=== PATIENT | female | born 1955 | race Caucasian/White ===

== ENCOUNTER 2016-09-26 05:56 | Inpatient (IN) | payer MEDICARE, MEDICAID ==
[2016-09-26] MEDS ORDERED: MORPHINE SULFATE 15 MG TABLET.SA PO PRN (06:00)
[2016-09-26] MEDS ORDERED: TRANEXAMIC ACID 1,000 MG in NORMAL SALINE 100 ML IV PRN (06:00)
[2016-09-26] MEDS ORDERED: RINGERS SOLUTION,LACTATED 1,000 ML IV PRN (06:00)
[2016-09-26] MEDS ORDERED: ceFAZolin SODIUM 1 GM VIAL IV PRN (06:00)
[2016-09-26] MEDS ORDERED: ROPIVACAINE HCL/PF 100 MG, KETOROLAC TROMETHAMINE 30 MG, EPINEPHrine 0.2 MG in NORMAL S... IJ PRN (06:00)
[2016-09-26] MEDS ORDERED: RINGERS SOLUTION,LACTATED 1,000 ML IV ONE ×2 (07:50→08:35)
[2016-09-26] MEDS ORDERED: ACETAMINOPHEN 500 MG TABLET PO PRN (10:38)
[2016-09-26] MEDS ORDERED: ZOLPIDEM TARTRATE 5 MG TABLET PO PRN (10:38)
[2016-09-26] MEDS ORDERED: diphenhydrAMINE HCL 50 MG/ML VIAL IV PRN (10:38)
[2016-09-26] MEDS ORDERED: MAG HYDROX/ALUMINUM HYD/SIMETH 30 ML UDC PO PRN (10:38)
[2016-09-26] MEDS ORDERED: MAGNESIUM HYDROXIDE 30 ML UDC PO PRN (10:38)
[2016-09-26] MEDS ORDERED: HYDROmorphone HCL 1 MG/ML DISP.SYRIN IV PRN (10:38)
[2016-09-26] MEDS ORDERED: PROMETHAZINE HCL 5 MG in DEXTROSE 5 % IN WATER 50 ML IV PRN ×2 (10:38)
[2016-09-26] MEDS ORDERED: ONDANSETRON HCL/PF 2 MG/ML VIAL IV PRN (10:38)
[2016-09-26] MEDS ORDERED: HYDROmorphone HCL 2 MG/ML VIAL IV PRN (10:43)
--- NOTE | 2016-09-26 10:43 | OR ---
Operative Report - Dictated Report Narrative: Date: 09/26/2016 Preoperative diagnosis: Valgus right Knee degenerative joint disease. Postoperative diagnosis: Valgus right Knee degenerative joint disease. Procedure: Right Total knee arthroplasty. Surgeon: Rufus Dick M.D. Wire Stockkeeper: Prince Thrasher PA-C, Aleksey Banks PA-C Anesthesia: General with regional block and local periarticular joint injection. Complications: None Specimens: Bone for disposal. Estimated blood loss: Minimal. Tourniquet time: 85 Minutes at 325 millimeters of mercury. Retained implants: Depuy Attune size 6 right lugged cemented posterior stabilized femoral component. Size 6 fixed-bearing cemented tibial platform. 6 by 8 millimeter posterior stabilized cross-linked tibial insert. 38 millimeter medialized patella button. Indications: Mrs. Alfaro is a 61-year-old female who had advanced valgus knee arthrosis and pain. This patient was followed in my clinic for period of time with significant complaints of right knee pain consistent with arthritic changes. They had failed conservative measures including, but not limited to, activity modification, passage of time, medications, and other conservative measures. Patient wished to proceed with surgical treatment. The risks, benefits, and alternatives were discussed in clinic. The risks of , blood clots, bleeding, infection, nerve/tendon blood vessel/ injury, malposition of components, intraoperative fracture, postoperative limited range of motion, persistent pain, failure of components, and need for additional procedures. Patient wished to proceed consent was obtained after answering all questions. Procedure: After marking the correct extremity on the floor, the patient was taken to the operating room. A timeout was performed. IV antibiotics consisting of Ancef were administered prior to the procedure. A regional followed by general anesthetic was induced by anesthesia on the operative table with all bony prominences well-padded. Rock catheter was placed, and a bump was placed under the operative side buttock. SCDs and MALLY hose were utilized on the nonoperative leg. A well-padded tourniquet was applied to the operative thigh. The operative leg was then pre-scrubbed with alcoho,l prepped, and draped in a standard sterile fashion. After exsanguinating the extremity with an Esmarch bandage, the tourniquet was inflated. After marking out the anterior knee for standard incision centered over the patella, the skin was incised and dissected down to the joint retinaculum. The joint retinaculum was marked out as well as the horizontal axis of the patella, and a standard medial parapatellar arthrotomy was then made. The most proximal aspect of the quadriceps tendon and the patella tendon insertion were protected from release. A partial synovectomy was performed as well as a resection of the infrapatellar fat pad. The distal femoral fat pad proximal to the trochlea was also resected using cautery. The soft tissues were elevated off the medial aspect of the proximal tibia using a [place] elevator ensuring that we did not transect the medial collateral ligament. Upon initial evaluation range of motion was approximately 0 degrees to 120 degrees of flexion. There were signs of advanced arthrosis in the medial, lateral, and patellofemoral joint spaces. There were large marginal osteophytes which were removed with a rongeur. The knee was hyperflexed and the patella was tucked laterally. Protecting the surrounding soft tissues with Homans, an entry drill was placed down the femoral canal using Whitesides line for guidance into the entry point. The intramedullary femoral alignment marina was utilized in order to cut the distal femur in 6 degrees of valgus resecting 10 millimeters of bone. Next the distal femur was sized to a size 6. A posterior referencing guide was utilized to place the distal femoral cutting block in 3 degrees of external rotation. This was pinned into place. The rotation was confirmed both visually and based on anatomic landmarks. The 4 in 1 cutting jig of the appropriate size was utilized in order to make all bony cuts. The angle wing was used to ensure no notching. Retractors were utilized in order to protect surrounding soft tissues. This cut did not result in any excessive notching. We then cut the box centered over the distal femur. This allowed for resection of the anterior and posterior cruciate ligaments. I then turned my attention to the preparation of the tibia. Using an extra medullary tibial alignment marina, 3 millimeters of bone was resected off the medial articular surface. This was made perpendicular to the mechanical axis of the joint with the alignment marian centered over the ankle mortise. The alignment marina was checked and was noted to be parallel to the mechanical axis, centered over the medial one third of the tibial tubercle, paralleling the anterior surface of the tibia. We then turned our attention to the remaining meniscus and soft tissues. These were removed while protecting the surrounding ligaments and soft tissues. The marginal osteophytes off the anterior, posterior, medial, lateral aspects of the femur and tibia were removed. The tibia was sized out to a size 6. Next the tibia was drilled and punched in an externally rotated position. Next the trial femur and a series of tibial inserts were utilized in order to allow for full extension and maximal flexion. It was found that a 8 millimeter insert gave the best range of motion and stability at multiple flexion points as well as at full extension there was less than 2 mm of gapping both medially and laterally. There is minimal anterior translation with the knee at 90 degrees of flexion and no signs of being able to dislocate the knee. The patella was then prepared. The initial thickness was 23 millimeters. This was reamed down to 13 millimeters parallel to the anterior surface of the patella. It was sized out to a size 38 medialized patella button. This was then drilled and trialed. Without any medial restraint the patella tracked appropriately and did not sublux or dislocate. At this point, it was felt these were the appropriate sized implants, and all trials were removed. The standard periarticular joint injection consisting of ropivacaine, Toradol, and epinephrine were injected into the periarticular joint tissues. The bony surfaces were thoroughly irrigated with a pulsatile- suction saline irrigation device. A bone plug from the prior resected anterior chamfer cut was placed into the drill hole at the distal femur. The bony surfaces were then dried in preparation for placement of the implants. The cement was vacuum mixed per the retail district manager's instructions. The cement was placed on the dry bony surfaces and posterior aspect of the implants. The implants were impacted into place, removing all extruded cement. At this point anesthesia administered tranexamic acid per protocol intravenously. The knee was placed in extension with axial loading with the trial insert while the cement cured. Once the cement cured, all remaining extruded cement was removed. The knee was placed through a range of motion with the trial insert to ensure appropriate range of motion and stability. Final range of motion was approximately 0 to 120 degrees. The knee was again thoroughly irrigated with pulsatile saline lavage. The final polyethylene insert was then impacted into place ensuring no retained soft tissues. The remaining periarticular joint injection was injected. A medium Hemovac drain was placed exiting superior laterally. The knee was then placed over a triangle and the arthrotomy was closed with interrupted #1 Vicryl after thoroughly irrigating the joint. The deep and subcutaneous tissues were closed with interrupted oh and 3-0 Vicryl respectively. Skin was closed with a running subcutaneous 3-0 Monocryl and Prineo Dermabond dressing. 4 x 4's, Sof-Rol, and a full leg Fuentes wrap were applied. All sponge, needle, blade, and instrument counts were correct prior to closing the wounds. Postoperative condition: The patient was awoken and transferred to the postanesthesia care unit in stable condition. Plan is to be admitted to the inpatient medical/surgical floor postoperatively for 24 hours of IV antibiotics , physical therapy, occupational therapy, and medical comanagement. Patient will be weightbearing as tolerated with range of motion as tolerated. DVT prophylaxis will be with SCDs, MALLY hose, and pharmacological anticoagulation. Anticipated hospital stay is approximately 2-4 days.
[2016-09-26] MEDS: DEXTROSE 5%-LACTATED RINGERS 1,000 ML IV PRN ×2 (11:49→20:50)
[2016-09-26] MEDS: ceFAZolin SODIUM 1 GM in DEXTROSE 5 % IN WATER 100 ML IV SCH ×6 (11:50→23:42)
[2016-09-26] MEDS: oxyCODONE HCL/ACETAMINOPHEN 1 TAB TABLET PO PRN ×2 (13:57→21:00)
--- NOTE | 2016-09-26 15:32 | OR ---
Anesthesia Procedure Note - Anesthesia Procedure Note Date of Service: 09/26/16 Narrative: Vital Signs - Last Taken Temp 36.6 C 09/26/16 12:10 Pulse 75 09/26/16 14:40 Resp 16 09/26/16 14:40 BP 135/72 09/26/16 14:40 Pulse Ox 97 09/26/16 14:40 O2 Oxygen Delivery Method Room Air 09/26/16 15:30 ANESTHESIA PROCEDURE NOTE Date of Procedure: 09/26/2016 Time of procedure: 7:55 AM. Performed by: JÚNIOR Kirk CRNA, MSN Manager Contact: Tali Mahmood RN. Preprocedure diagnosis: Right total knee replacement, requested pain relief. Post procedure diagnosis: Same. Procedure: Right Femoral nerve block. Indications: Post right total knee replacement pain relief. Findings: See below. Details of the procedure: The patient was brought to OR for and placed in the supine position. The patient was prepped with chlorhexidine and using ultrasound guidance the right femoral nerve and artery were identified and lidocaine 1% was infiltrated to the skin of the intended injection site. Under ultrasound guidance the femoral nerve was approached until a shoulder/arm response was identified on nerve stimulator. Once the stimulator response was effective at less than 0.5 mV and greater than 0.3 mV the femoral nerve was surrounded with 30 mL bupivacaine 0.5% with 1-200,000 epinephrine. Please see radiology/ultrasound report for details and images of the procedure. EBL: 0 Fluids: N/A. Specimen: N/A. Post procedure condition: The patient tolerated the procedure well. No complications were noted. Thank you for this consultation. Shane Webb CRNA, ARNP, MSN
[2016-09-26] MEDS: ATENOLOL 50 MG TABLET PO SCH (20:53)
[2016-09-26] MEDS: MORPHINE SULFATE 15 MG TABLET.SA PO SCH (20:53)
[2016-09-26] MEDS: SENNOSIDES/DOCUSATE SODIUM 1 TAB TABLET PO SCH (20:53)
[2016-09-27] MEDS: DEXTROSE 5%-LACTATED RINGERS 1,000 ML IV PRN (05:03)
[2016-09-27 06:02] LABS: Hematocrit 35.2 % (37.0-47.0); Hemoglobin 11.8 gm/dL (12.5-16.0); Mean Corpuscular Hemoglobin 30.5 pg (27-31); Mean Corpuscular Hgb Conc 33.5 g/dl (32-36); Mean Platelet Volume 9.8 fl (6.0-9.5); Platelet Count 147 K/mm3 (150-450); Red Blood Count 3.87 M/mm3 (4.2-5.4); Red Cell Distribution Width 12.9 % (11.5-14.0); White Blood Count 8.9 K/mm3 (4.0-10.5)
[2016-09-27 06:09] LABS: Anion Gap 10.5 mmol/L (6.8-13.8); BUN/Creatinine Ratio 15.3 (9.0-21.6); Calcium * 8.6 mg/dL (7.9-10.9); Carbon Dioxide 29.9 mmol/L (24-32.6); Estimated Creat Clear 77.1; Potassium 4.4 mmol/L (3.4-4.6)
[2016-09-27] MEDS: oxyCODONE HCL/ACETAMINOPHEN 1 TAB TABLET PO PRN ×3 (07:22→21:42)
--- NOTE | 2016-09-27 07:51 | PN ---
Subjective - Date and Time Seen Date: 09/27/16 Time: 07:49 Subjective Narrative: Subjective: Reports no concerns. Was able to get to the chair with therapy. Pain is well-controlled. Voiding without any complications. Tolerating by mouth intake. Denies any nausea or vomiting. Denies calf pain. Slept well. Physical exam: Alert and oriented to person, place and time Right lower Extremity: Palpable dorsalis pedis pulse. Sensation grossly intact to light touch. Dressings clean and dry. Able to flex and extend ankle and toes. No excessive drainage. Calf and thigh are soft and nontender. Assessment: Postop day 1 status post right total knee arthroplasty. Plan: Continue with physical and occupational therapy weightbearing as tolerated. Continue with anticoagulation. 24 hours postoperative prophylactic antibiotics. Pain control with goal to rely on oral medications. Continue bowel regimen. Will need 6 weeks with walker or assitive device to protect joint while ambulating during the recovery process. Discharge planning. Discontinue drain and Rock catheter. Repeat labs in a.m. Objective - Vitals Vitals: Last Vital Signs Temp 36.9 C 09/27/16 07:14 Pulse 79 09/27/16 07:14 Resp 18 09/27/16 07:14 BP 111/67 09/27/16 07:14 Pulse Ox 93 09/27/16 07:14 - Abnormal Lab Findings Abnormal Lab Findings: Abnormal Lab Results 09/27/16 09/27/16 Range/Units 05:56 05:56 RBC 3.87 L (4.2-5.4) M/mm3 Hgb 11.8 L (12.5-16.0) gm/dL Hct 35.2 L (37.0-47.0) % Plt Count 147 L (150-450) K/mm3 MPV 9.8 H (6.0-9.5) fl Random Glucose 136 H (70-110) mg/dL - Exam Constitutional: Present: Alert, Oriented x3 Cauti Physician Documentation - Urinary Catheter Management Straight Date of Insertion: 09/26/16 Time of Insertion: 08:50 Assessment/Plan - Problems/Diagnosis (1) Hyperlipidemia Problem: Chronic (2) Hypertension Problem: Chronic (3) Thrombocytopenia Problem: Chronic (4) Status post total right knee replacement Problem: Acute (5) Acute blood loss anemia Problem: Acute
[2016-09-27] MEDS: ATENOLOL 50 MG TABLET PO SCH ×2 (09:27→20:33)
[2016-09-27] MEDS: LOSARTAN POTASSIUM 50 MG TABLET PO SCH (09:27)
[2016-09-27] MEDS: LORATADINE 10 MG TABLET PO SCH (09:27)
[2016-09-27] MEDS: amLODIPine BESYLATE 10 MG TABLET PO SCH (09:27)
[2016-09-27] MEDS: HYDROCHLOROTHIAZIDE 25 MG TABLET PO SCH (09:28)
[2016-09-27] MEDS: MORPHINE SULFATE 15 MG TABLET.SA PO SCH ×2 (09:29→20:42)
[2016-09-27] MEDS: ENOXAPARIN SODIUM 40 MG/0.4 ML SYRG SC SCH (09:30)
[2016-09-27] MEDS: SENNOSIDES/DOCUSATE SODIUM 1 TAB TABLET PO SCH (20:32)
[2016-09-28 05:16] LABS: Hematocrit 31.6 % (37.0-47.0); Hemoglobin 10.7 gm/dL (12.5-16.0); Mean Cell Volume 89.5 fl (78-100); Mean Corpuscular Hemoglobin 30.3 pg (27-31); Mean Corpuscular Hgb Conc 33.9 g/dl (32-36); Mean Platelet Volume 9.9 fl (6.0-9.5); Platelet Count 149 K/mm3 (150-450); Red Blood Count 3.53 M/mm3 (4.2-5.4); White Blood Count 7.4 K/mm3 (4.0-10.5)
[2016-09-28] MEDS: oxyCODONE HCL/ACETAMINOPHEN 1 TAB TABLET PO PRN ×2 (05:19→11:15)
[2016-09-28 05:38] LABS: Anion Gap 8.1 mmol/L (6.8-13.8); BUN/Creatinine Ratio 14.7 (9.0-21.6); Calcium * 8.3 mg/dL (7.9-10.9); Carbon Dioxide 29.6 mmol/L (24-32.6); Estimated Creat Clear 96.3; Potassium 3.7 mmol/L (3.4-4.6)
[2016-09-28] MEDS: ATENOLOL 50 MG TABLET PO SCH (08:08)
[2016-09-28] MEDS: HYDROCHLOROTHIAZIDE 25 MG TABLET PO SCH (08:08)
[2016-09-28] MEDS: MORPHINE SULFATE 15 MG TABLET.SA PO SCH (08:08)
[2016-09-28] MEDS: LORATADINE 10 MG TABLET PO SCH (08:08)
[2016-09-28] MEDS: LOSARTAN POTASSIUM 50 MG TABLET PO SCH (08:09)
[2016-09-28] MEDS: amLODIPine BESYLATE 10 MG TABLET PO SCH (08:09)
[2016-09-28] MEDS: ENOXAPARIN SODIUM 40 MG/0.4 ML SYRG SC SCH (09:55)
--- NOTE | 2016-09-28 11:00 | DS ---
(1) Acute blood loss anemia Problem: Acute (2) Status post total right knee replacement Problem: Acute (3) Hyperlipidemia Problem: Chronic (4) Hypertension Problem: Chronic (5) Bronchitis Problem: Acute Description of Stay: Mrs. Alfaro was admitted to the floor after undergoing right total knee arthroplasty. Tolerated this well. Was admitted to the floor postoperatively for 24 hours of IV antibiotics, pain control, medical comanagement, and occupational and physical therapy. OT and PT were consulted to assist with activities of daily living and ambulation. Was made weightbearing as tolerated with range of motion as tolerated. Pain was initially controlled with IV regimen. This was transitioned to oral once tolerating a by mouth intake. Was resumed on home diet and medications. Had a Rock catheter inserted and the operating room which was discontinued on postoperative day 1. A drain was placed intraoperatively into the knee which was discontinued on postoperative day 1. Lovenox SCD and MALLY hose were utilized for DVT prophylaxis. Vital signs remained stable to the hospital course. Serial labs were obtained which showed a final hemoglobin of 10.7 grams. BMP was reviewed and was stable. Physical examination throughout the hospital course showed an extremity that had sensation that was intact to light touch, palpable pulses, a benign wound, motor intact to the toes, ankle, and knee. Knee range of motion was approximately [] degrees to [] degrees. Once an oral pain regimen was tolerated and physical therapy goals were met, it was felt that they were stable for discharge to home. Instructions: Continue with weightbearing as tolerated and range of motion as tolerated. It is OK to shower on the wound if it is not draining. If you note any drainage or for comfort you can cover with dry gauze and tape. Change every 2-3 days as needed. Continue with physical therapy. Resume home diet. Report any fever over 101.5 Fahrenheit, uncontrolled pain, increased drainage, foul odor of drainage, new or increased calf pain or shortness of breath, or any other significant complaints. A 325mg dialy aspirin will be started after finishing anticoagulation if not allergic. Continue with MALLY hose on the operative extremity until instructed otherwise. No driving until instructed otherwise. Follow up in approximately 10-14 days. Procedures Performed: see notes below List Procedures: Right total knee arthroplasty Discharge Disposition: Home self care Disposition: Home self-care Condition: Good Discharge Activity: Activity as tolerated, Weight bearing Discharge Diet: Low salt Referrals: Maegan Rea FNP [Primary Care Provider] - Additional Patient Instructions (free text): Follow-up in the Orthopedic office with Dr. Dick on Monday10/11/16 at 9: 45am. [facility] new at discharge, please call and fax discharge information to them. Prescriptions (Any new or edited meds): Enoxaparin Sodium [Lovenox] 40 mg SC Q24H #7 disp.syrin Morphine Sulfate [Ms Contin] 15 mg PO Q12H #20 tablet.sa Sennosides/Docusate Sodium [Senokot-S] 2 tab PO HS #30 tablet oxyCODONE HCL/ACETAMINOPHEN [Percocet 5 MG/325 MG] 2 tab PO Q4H PRN #90 tablet PRN Reason: Moderate Pain Complete Home Medications List: Complete Home Medication List: Atenolol [Tenormin] 50 mg PO BID 03/04/16 Loratadine [Claritin] 10 mg PO DAILY 09/12/16 Losartan/Hydrochlorothiazide [Hyzaar 100-25 Tablet] 1 each PO DAILY 09/12/16 amLODIPine BESYLATE [Norvasc] 10 mg PO DAILY 09/12/16 Enoxaparin Sodium [Lovenox] 40 mg SC Q24H #7 disp.syrin 09/28/16 Morphine Sulfate [Ms Contin] 15 mg PO Q12H #20 tablet.sa 09/28/16 Sennosides/Docusate Sodium [Senokot-S] 2 tab PO HS #30 tablet 09/28/16 oxyCODONE HCL/ACETAMINOPHEN [Percocet 5 MG/325 MG] 2 tab PO Q4H PRN #90 tablet 09/28/16
[2016-09-28 16:03] VITALS: BP 94/55
== END 2016-09-28 17:15 | disposition home health service (06) | DRG 470 ==
LOC: MS 05:56
PROVIDERS: ADMIT Orthopaedic Surgery; ATTEND Orthopaedic Surgery
PROC: 0SRC0J9 Replacement of Right Knee Joint with Synthetic Substitute, Cemented, Open Approach (ICD-10-PCS; principal; 2016-09-26 08:00)
DX: M17.0 Bilateral primary osteoarthritis of knee (principal); D62 Acute posthemorrhagic anemia; I10 Essential (primary) hypertension; E78.5 Hyperlipidemia, unspecified; R01.1 Cardiac murmur, unspecified; D69.6 Thrombocytopenia, unspecified; Z87.891 Personal history of nicotine dependence

== ENCOUNTER 2016-09-29 20:33 | Observation (INO) | payer MEDICARE, MEDICAID ==
[2016-09-29] MEDS ORDERED: GLUCAGON,HUMAN RECOMBINANT 1 MG VIAL IM ONE (21:16)
[2016-09-29] MEDS ORDERED: GLUCAGON,HUMAN RECOMBINANT 1 MG VIAL ONE (21:20)
--- NOTE | 2016-09-29 21:29 | ERNOTE ---
Medical Problem HPI - Narrative Date of Service: 09/29/16 - General Chief Complaint: Foreign Body Time Seen by Provider: 09/29/16 20:52 Source: patient, RN notes reviewed, old records Exam Limitations: no limitations - Immun/Allergies/Home Medications Immunizations: IMMUNIZATION HX Immunizations Up to Date Yes History of Influenza Vaccine No Hx Pneumococcal Vaccination No Allergies/Adverse Reactions: Allergies ciprofloxacin Allergy (Mild, Verified 09/26/16 06:45) Hives celecoxib [From Celebrex] Adverse Reaction (Mild, Verified 09/26/16 06:45) TUNNEL VISION codeine Adverse Reaction (Mild, Verified 09/26/16 06:45) Nausea nitroglycerin Adverse Reaction (Mild, Verified 09/26/16 06:45) RASH Home Medications: HOME MEDICATIONS Atenolol [Tenormin] 50 mg PO BID 03/04/16 [Last Taken Unknown] Loratadine [Claritin] 10 mg PO DAILY 09/12/16 [Last Taken Unknown] Losartan/Hydrochlorothiazide [Hyzaar 100-25 Tablet] 1 each PO DAILY 09/12/16 [ Last Taken Unknown] amLODIPine BESYLATE [Norvasc] 10 mg PO DAILY 09/12/16 [Last Taken Unknown] Enoxaparin Sodium [Lovenox] 40 mg SC Q24H #7 disp.syrin 09/28/16 [Last Taken Unknown] Morphine Sulfate [Ms Contin] 15 mg PO Q12H #20 tablet.sa 09/28/16 [Last Taken Unknown] Sennosides/Docusate Sodium [Senokot-S] 2 tab PO HS #30 tablet 09/28/16 [Last Taken Unknown] oxyCODONE HCL/ACETAMINOPHEN [Percocet 5 MG/325 MG] 2 tab PO Q4H PRN #90 tablet 09/28/16 [Last Taken Unknown] - History of Present History Narrative: Sheryl is a 61 year old female who presents to the ED by private vehicle for an esophageal foreign body. She was holding the cap to a plastic water bottle in her mouth while getting her medication ready to take when she swallowed the cap. She feels like something is lodged in the mid to lower portion of her esophagus. She is able to speak and swallow without difficulty. She underwent a left total knee replacement 3 days ago and was discharged from the hospital yesterday. Date (Duration): 09/29/16 Review of Systems - Review of Systems Constitutional: Absent: recent illness, fever EYE: Present: no symptoms reported ENT: Present: no symptoms reported Respiratory: Absent: shortness of breath, cough, wheezing, stridor Cardiology: Absent: chest pain, palpitations Gastrointestinal/Abdominal: Absent: nausea, vomiting, abdominal pain Genitourinary: Present: no symptoms reported Musculoskeletal: Present: no symptoms reported Skin: Present: no symptoms reported Neurological: Present: no symptoms reported Endocrine: Present: no symptoms reported Hematologic/Lymphatic: Present: easy bruising, easy bleeding Psych: Present: no symptoms reported - Patient's Past Medical History Patient History - Medical: Obesity Patient History - Cardiac/Respiratory: Hypertension, Hyperlipidemia Patient History - Cancer: No Hx of Cancer Patient History - Surgical Procedures: Cholecystectomy, , Total Knee Replacement, Other Patient History - Other: None LMP (females 10-50): Menopausal - Family History Mother Family History - Medical: Family History - Cardiac/Respiratory: CHF, Hypertension, Hyperlipidemia Family History - Cancer: No pertinent family hx Father Family History - Medical: Family History - Cardiac/Respiratory: No pertinent hx Family History - Cancer: Prostate - Social History Living Situations: alone Abuse History: No History of abuse Psych History: No pertinent hx Smoking Status: Former smoker Have you smoked in the past 12 months: Yes Do you dip or chew tobacco: No Patient requests Smoking Cessation Consult: No Initiate information on Smoking Cessation: No Alcohol Use: none Drug Use: none - Immunizations Immunizations Up to Date: Yes Hx Pneumococcal Vaccination: No History of Influenza Vaccine: No Physical Exam - Physical Exam General Appearance: Present: wd/wn, alert, no apparent distress Neck: Present: normal inspection, nontender, supple, full range of motion Respiratory: Present: no respiratory distress, normal breath sounds, no accessory muscle use, chest nontender, lungs clear Cardiovascular/Chest: Present: regular rate, rhythm, no murmur, normal peripheral pulses Gastrointestinal/Abdominal: Present: normal bowel sounds, nontender, nondistended, soft Neurological Exam: Present: alert, oriented, normal mood/affect, no motor/ sensory deficits Skin Exam: Present: normal color, warm/dry ED Progress - Vital Signs Patient's Vital Signs:: I have reviewed the patient's vital signs. Vital Signs: Vital Signs 09/29/16 20:40 Temperature 35.8 C L Pulse Rate 105 H Respiratory 18 Rate Blood Pressure 111/64 O2 Sat by Pulse 96 Oximetry - X-Ray X-Ray #1 X-Ray: chest Interpretation: Interp. by me X-ray Comments: No definite foreign body visualized although a silhouette that could be a bottle cap is present near the mid esophagus - CT/Ultrasound CT/Ultrasound Narrative: Chest CT shows an obvious esophageal foreign body shaped like a plastic bottle lid - Progress/Reassessment Chief Complaint: Foreign Body Progress:: Unchanged Progress Note-Subjective: 09/29/16 21:28 GAB Vo contacted regarding patient as she is only 3 days post-op after her knee replacement. He recommends administering a dose of Ancef preoperatively if she has to have an endoscopy. 09/29/16 22:05 No improvement after glucagon. Dr. Lopez contacted regarding foreign body visualized on CT. He is coming to evaluate the patient. CT results discussed with patient. Departure - Departure Clinical Impression: Esophageal foreign body Qualifiers: Encounter type: initial encounter Qualified Code(s): T18.108A - Unspecified foreign body in esophagus causing other injury, initial encounter Disposition: [facility] Condition: Stable Referrals: Jorge Lopez MD [Associate] -
[2016-09-29] MEDS ORDERED: ceFAZolin SODIUM 1 GM in DEXTROSE 5 % IN WATER 100 ML IV PRN ×2 (22:08)
--- NOTE | 2016-09-29 23:07 | HP ---
Chief Complaint - Chief Complaint Date of Service: 09/29/16 Time of Service: 22:58 Chief Complaint: Accidentally swallowed the cap to her pain medicine History of Present Illness: Pt had TKA on Monday (this is ) and was taking her pain medicine tonight and inadvertently swallowed the cap to her pain medicine bottle. There is no airway compromise. There is no drooling. She complains of intermittent retrosternal pains carlton to labor. A CT scan was performed that shows a plastic FB retrocardiac in the esophagus that measures approximately 27mm in diameter. - Patient's Past Medical History Patient History - Medical: Obesity Patient History - Cardiac/Respiratory: Hypertension, Hyperlipidemia Patient History - Cancer: No Hx of Cancer Patient History - Surgical Procedures: Cholecystectomy, , Total Knee Replacement, Other Patient History - Other: None LMP (females 10-50): Menopausal - Family History Mother Family History - Medical: Family History - Cardiac/Respiratory: CHF, Hypertension, Hyperlipidemia Family History - Cancer: No pertinent family hx Father Family History - Medical: Family History - Cardiac/Respiratory: No pertinent hx Family History - Cancer: Prostate - Social History Living Situations: alone Abuse History: No History of abuse Psych History: No pertinent hx Smoking Status: Former smoker Have you smoked in the past 12 months: Yes Do you dip or chew tobacco: No Patient requests Smoking Cessation Consult: No Initiate information on Smoking Cessation: No Alcohol Use: none Drug Use: none - Immunizations Immunizations Up to Date: Yes Hx Pneumococcal Vaccination: No History of Influenza Vaccine: No Review Of Systems (GEN) - Review of Systems Cardiac: Present: Chest Pain Abdominal: Absent: Nausea, Vomiting, Abdominal Pain Misc: All systems neg except as marked Immunizations: IMMUNIZATION HX Immunizations Up to Date Yes History of Influenza Vaccine No Hx Pneumococcal Vaccination No Allergies/Adverse Reactions: Allergies Allergy/AdvReac Type Severity Reaction Status Date / Time ciprofloxacin Allergy Mild Hives Verified 09/26/16 06:45 celecoxib [From Celebrex] AdvReac Mild TUNNEL Verified 09/26/16 06:45 VISION codeine AdvReac Mild Nausea Verified 09/26/16 06:45 nitroglycerin AdvReac Mild RASH Verified 09/26/16 06:45 Home Medications: HOME MEDICATIONS Atenolol [Tenormin] 50 mg PO BID 03/04/16 [Last Taken Unknown] Loratadine [Claritin] 10 mg PO DAILY 09/12/16 [Last Taken Unknown] Losartan/Hydrochlorothiazide [Hyzaar 100-25 Tablet] 1 each PO DAILY 09/12/16 [ Last Taken Unknown] amLODIPine BESYLATE [Norvasc] 10 mg PO DAILY 09/12/16 [Last Taken Unknown] Enoxaparin Sodium [Lovenox] 40 mg SC Q24H #7 disp.syrin 09/28/16 [Last Taken Unknown] Morphine Sulfate [Ms Contin] 15 mg PO Q12H #20 tablet.sa 09/28/16 [Last Taken Unknown] Sennosides/Docusate Sodium [Senokot-S] 2 tab PO HS #30 tablet 09/28/16 [Last Taken Unknown] oxyCODONE HCL/ACETAMINOPHEN [Percocet 5 MG/325 MG] 2 tab PO Q4H PRN #90 tablet 09/28/16 [Last Taken Unknown] Exam - Exam Vital Signs: Vital Signs - Last Taken Temp 36.9 C 09/29/16 22:50 Pulse 90 09/29/16 22:50 Resp 16 09/29/16 22:50 BP 109/63 09/29/16 22:50 Pulse Ox 100 09/29/16 22:50 Constitutional: Present: Alert, Oriented x3, Cooperative, Well developed, Well nourished, No distress, Obese ENT Exam: Present: normal ENT inspection Eye Exam: bilateral eye: normal inspection Neck: Present: non-tender, full range of motion, supple, normal inspection, trachea midline. Absent: lymphadenopathy (R), lymphadenopathy (L) Back Exam: Present: no vertebral tenderness Respiratory: Present: lungs clear, normal breath sounds, no respiratory distress Cardiovascular/Chest: Present: regular rate, rhythm, systolic murmur Abdomen: Present: Normal bowel sounds, soft, nontender, nondistended, no hepatospenomegaly, no masses Extremity: Present: other - Fresh incision on right knee with slight erythema. No drainage. Appears to have a subcuticular closure. Assessment/Plan - Assessment/Plan (1) Esophageal foreign body Assessment: P: This is unlikely to pass and presents with significant symptomatology. I have recommended an urgent EGD. The options (impatient observation), risks, and benefits of the procedure were reviewed with her fully. She seems to understand , asks appropriate questions, and desires to proceed. Problem: Acute Qualifiers: Encounter type: initial encounter Qualified Code(s): T18.108A - Unspecified foreign body in esophagus causing other injury, initial encounter
[2016-09-29] MEDS ORDERED: RINGER'S SOLUTION,LACTATED 1,000 ML IV ONE (23:45)
[2016-09-29] MEDS ORDERED: ceFAZolin SODIUM 1 GM VIAL IV ONE (23:55)
[2016-09-30] MEDS ORDERED: oxyCODONE HCL/ACETAMINOPHEN 1 TAB TABLET PO PRN (01:27)
[2016-09-30] MEDS ORDERED: MORPHINE SULFATE 4 MG/ML SYRG IV PRN (01:27)
[2016-09-30] MEDS ORDERED: ONDANSETRON HCL/PF 2 MG/ML VIAL IV PRN (01:27)
[2016-09-30] MEDS ORDERED: PANTOPRAZOLE SODIUM 40 MG in NORMAL SALINE 100 ML IV SCH ×2 (01:30→02:00)
[2016-09-30] MEDS ORDERED: PHENOL 180 SPRAY BTL MM PRN (01:32)
[2016-09-30] MEDS ORDERED: PHENOL MM PRN (01:33)
[2016-09-30] MEDS ORDERED: MENTHOL MM PRN (01:33)
[2016-09-30] MEDS ORDERED: ENOXAPARIN SODIUM 40 MG/0.4 ML SYRG SC SCH ×2 (02:00→15:30)
[2016-09-30] MEDS: RINGER'S SOLUTION,LACTATED 1,000 ML IV PRN ×2 (02:27→11:36)
[2016-09-30] MEDS ORDERED: MORPHINE SULFATE 2 MG/ML DISP.SYRIN IV PRN (07:00)
--- NOTE | 2016-09-30 07:54 | OR ---
Operative Report - Dictated Report Narrative: Operative Report Date of operation: 09/29/2016 Preoperative diagnosis: Foreign body of the esophagus Postoperative diagnosis: Foreign body of esophagus (plastic water bottle cap) Operation: EGD with retrieval of esophageal foreign body. (Very difficult procedure requiring use of flexible fiberoptic gastroscope and a rigid esophagoscope) Surgeon: Dr. Lopez and Dr Huerta Anesthesia: Gen. jesse Webb CRNA Indications for procedure: The patient is a 61-year-old female who is 3 days status post right total knee arthroplasty. She was holding the cap of a plastic water bottle in her mouth while she was getting ready to take her pain medicine, and she accidentally swallowed the cap of the bottle. She is having severe spasms in the mid chest. The foreign body does not visualize on plain x- ray however a CT scan shows the cap lodged in the esophagus just below level of the kaila and in the space adjacent to the curve of the aortic arch. The spasms continue and the object has not moved despite glucagon. She will require endoscopy for retrieval of the object. Orthopedics has been notified of the situation and their input received. Findings: Plastic bottle cap, successfully retrieved Narrative of procedure: The patient was identified preoperatively, and prior to the administration of anesthetic a multidisciplinary timeout was observed With the patient in the recumbent position, SCDs were applied, intravenous Ancef administered, and general endotracheal anesthetic administered. Dr Lopez initiated the procedure. The flexible fiberoptic gastroscope was advanced into the posterior pharynx alongside the endotracheal tube which was seen to be in good position. The scope was advanced under direct vision into the proximal esophagus which appeared normal. The scope was advanced down the esophagus and into the stomach. The gastric mucosa appeared normal, however the ingested object was not immediately visible. There was undigested food present. Gastric peristalsis was active. A retroflexed view of the gastric fundus revealed food but no foreign body. The scope was redirected toward the pylorus. There was no foreign body visible in the distal stomach. The scope was advanced through the pylorus into the duodenum. There was a small amount of food present however the foreign body was not seen. The scope was then withdrawn into the stomach which was reinspected with confirmation that the foreign body was not present. The stomach was then emptied of insufflated air. The scope was then withdrawn slowly up the esophagus and the foreign body was located, lodged below the level of the kaila in the pocket created by the impression of the aortic arch. An attempt was made to retrieve the object using a 3-pronged grasper however insufficient purchase was obtained to withdraw the object from the snug anatomic location. At this juncture Dr Lopez requested that Dr. Huerta continue the procedure. Attempts were made to remove the object by use of a 3-pronged grasper, cold biopsy forceps, Youngblood net, and endoscopic snares. These implements provided insufficient purchase to dislodge the cap from the snug anatomic location. Likewise the object could not be dislodged to be maneuvered distally into the stomach. An attempt was also made to advance a rigid esophagoscope to this location however it was unsuccessful due to patient body habitus. Using the flexible gastroscope , an esophageal dilation balloon was passed beyond the object and inflated. It was then withdrawn slowly until the cap was captured. The balloon required slight deflation to pass through the aortic arch level, however after several attempts the cap was successfully pulled above the arch level and into the cervical esophagus. The balloon was then further inflated, and the cap was withdrawn in conjunction with the esophagoscope--pulling the cap through the cricopharyngeus into the posterior pharynx. The cap was then retrieved digitally. The cap was inspected and found to be intact. The endoscope was then readvanced to inspect the posterior pharynx where there was an abrasion which appeared hemostatic. The visible larynx appeared normal. The scope was then readvanced down the esophagus which was carefully suctioned and inspected. There was no evidence of mucosal injury. The scope was advanced into the stomach which again appeared normal with a small amount of ingested food. The stomach was suctioned to remove insufflated air. The scope was then slowly withdrawn up the esophagus with confirmation that no mucosal injury was present. The scope was then withdrawn from the patient and the procedure terminated. The patient tolerated the anesthetic and procedure well without complication and was transferred back to the recovery room awake, extubated, and in stable condition. The patient will be placed in observation status. Reviewed and electronically signed
[2016-09-30 15:04] VITALS: BP 139/70
--- NOTE | 2016-09-30 16:00 | PN ---
Subjective - Date and Time Seen Date: 09/30/16 Time: 15:57 Subjective Narrative: FU EGD with FB extraction c/o mild retrosternal discomfort and a mild sort throat. No difficulty swallowing. Tolerating clear liquids well. Objective Objective Narrative: NECK: soft, supple, nontender, no crepitus ABD: soft, nontender. - Vitals Vitals: Last Vital Signs Temp 36.2 C L 09/30/16 02:34 Pulse 90 09/30/16 14:15 Resp 18 09/30/16 14:15 BP 139/70 09/30/16 14:15 Pulse Ox 100 09/30/16 14:15 - Exam Constitutional: Present: Alert, Oriented x3, Cooperative, No distress Assessment/Plan Plan Narrative: P: Discharge today. FU PRN. Clear liquids through today. May advance diet as tolerated to all-cooked for one week then regular diet. - Problems/Diagnosis (1) Esophageal foreign body Problem: Resolved Qualifiers: Encounter type: initial encounter Qualified Code(s): T18.108A - Unspecified foreign body in esophagus causing other injury, initial encounter
--- NOTE | 2016-09-30 16:08 | DS ---
(1) Esophageal foreign body Problem: Resolved Qualifiers: Encounter type: initial encounter Qualified Code(s): T18.108A - Unspecified foreign body in esophagus causing other injury, initial encounter Description of Stay: Pt presented having accidentally swallowed a water bottle cap. Was taken to the OR and had the foreign body extracted from the esophagus by EGD. She tolerated the procedure well. Postoperatively has recovered well and is tolerated oral intake and no stigmata of a perforation. She is discharged in improved condition to FU with me PRN. Continue clears through day. Start fulls tomorrow and advance to all-cooked for the next week. She may then resume a regular diet. Procedures Performed: see notes below List Procedures: EGD with extraction of esophageal foreign body Discharge Disposition: Home self care Disposition: Home self-care Condition: Good Discharge Activity: Other - As per her previous orthpedic recommendations Referrals: Jorge Lopez MD [Associate] - Additional Patient Instructions (free text): [facility] ongoing, please call and fax discharge information to them. Complete Home Medications List: Complete Home Medication List: Atenolol [Tenormin] 50 mg PO BID 03/04/16 Loratadine [Claritin] 10 mg PO DAILY 09/12/16 Losartan/Hydrochlorothiazide [Hyzaar 100-25 Tablet] 1 each PO DAILY 09/12/16 amLODIPine BESYLATE [Norvasc] 10 mg PO DAILY 09/12/16 Enoxaparin Sodium [Lovenox] 40 mg SC Q24H #7 disp.syrin 09/28/16 Morphine Sulfate [Ms Contin] 15 mg PO Q12H #20 tablet.sa 09/28/16 Sennosides/Docusate Sodium [Senokot-S] 2 tab PO HS #30 tablet 09/28/16 oxyCODONE HCL/ACETAMINOPHEN [Percocet 5 MG/325 MG] 2 tab PO Q4H PRN #90 tablet 09/28/16 Phenol [Chloraseptic] 1 spray MM PRN PRN #0 btl 09/30/16 Phenol/Menthol [Cepastat] 1 danielle MM PRN PRN #0 box 09/30/16
[2016-10-01] MEDS ORDERED: ENOXAPARIN SODIUM 40 MG/0.4 ML SYRG SC SCH (14:00)
== END 2016-09-30 16:58 | disposition home health service (06) ==
LOC: ER 20:33 → AMB 23:04 → MS 09-30 01:28
PROVIDERS: ADMIT Specialist; ATTEND Specialist
PROC: 0D728ZZ Dilation of Middle Esophagus, Via Natural or Artificial Opening Endoscopic (ICD-10-PCS; 2016-09-29)
PROC: 0DC28ZZ Extirpation of Matter from Middle Esophagus, Via Natural or Artificial Opening Endoscopic (ICD-10-PCS; principal; 2016-09-29 23:45)
DX: T18.198A Other foreign object in esophagus causing other injury, initial encounter (principal); Z96.651 Presence of right artificial knee joint; I10 Essential (primary) hypertension; E66.9 Obesity, unspecified; Z68.41 Body mass index [BMI] 40.0-44.9, adult
CPT/HCPCS: 43247; 43249; 71020; 71250; 96367; 96372; 99284; G0378

== ENCOUNTER 2017-01-16 08:31 | Emergency (ER) | payer MEDICARE, MEDICAID ==
--- NOTE | 2017-01-16 09:24 | ERNOTE ---
Upper Extremity HPI - General Extremities Pain Location: wrist: left Time Seen by Provider: 01/16/17 09:17 Source: patient Exam Limitations: no limitations - Immun/Allergies/Home Medications Immunizations: IMMUNIZATION HX Immunizations Up to Date Yes History of Influenza Vaccine No Hx Pneumococcal Vaccination No Allergies/Adverse Reactions: Allergies Allergy/AdvReac Type Severity Reaction Status Date / Time ciprofloxacin Allergy Mild Hives Verified 01/16/17 08:41 celecoxib [From Celebrex] AdvReac Mild TUNNEL Verified 01/16/17 08:41 VISION codeine AdvReac Mild Nausea Verified 01/16/17 08:41 nitroglycerin AdvReac Mild RASH Verified 01/16/17 08:41 Home Medications: HOME MEDICATIONS Atenolol [Tenormin] 50 mg PO BID 03/04/16 [Last Taken Unknown] Loratadine [Claritin] 10 mg PO DAILY 09/12/16 [Last Taken Unknown] Losartan/Hydrochlorothiazide [Hyzaar 100-25 Tablet] 1 each PO DAILY 09/12/16 [ Last Taken Unknown] amLODIPine BESYLATE [Norvasc] 10 mg PO DAILY 09/12/16 [Last Taken Unknown] - History of Present Illness Narrative: Patient woke up two days ago with pain in her left wrist. She denies any injury , denies any unusual activity, has not tried any pain meds, denies any additional symptoms Date (Duration): 01/14/17 Location of Incident: home Method of Injury: Reports: no apparent injury Modifying Factors - (Improves): Reports: immobilization Modifying Factors - (Worsens): Reports: movement Associated Symptoms: Denies: tingling, weakness Prior Treament: Denies: recently seen, similar symptoms before Review of Systems - Review of Systems Constitutional: Absent: recent illness, fever Respiratory: Absent: shortness of breath Cardiology: Absent: chest pain Gastrointestinal/Abdominal: Absent: nausea, abdominal pain Genitourinary: Present: no symptoms reported Musculoskeletal: Present: See HPI Skin: Absent: rash Neurological: Absent: numbness - Patient's Past Medical History Patient History - Medical: Obesity Patient History - Cardiac/Respiratory: Hypertension, Hyperlipidemia Patient History - Cancer: No Hx of Cancer Patient History - Surgical Procedures: Cholecystectomy, , Total Knee Replacement, Other Patient History - Other: None - Family History Mother Family History - Medical: Family History - Cardiac/Respiratory: CHF, Hypertension, Hyperlipidemia Family History - Cancer: No pertinent family hx Father Family History - Medical: Family History - Cardiac/Respiratory: No pertinent hx Family History - Cancer: Prostate - Social History Living Situations: home Abuse History: No History of abuse Psych History: No pertinent hx - Immunizations Immunizations Up to Date: Yes Hx Pneumococcal Vaccination: No History of Influenza Vaccine: No Physical Exam - Physical Exam General Appearance: Present: wd/wn, alert, no apparent distress, obese Respiratory: Present: no respiratory distress, normal breath sounds, lungs clear Cardiovascular/Chest: Present: regular rate, rhythm, no murmur Extremity Exam: Present: normal except - - slight diffuse swelling over wrist, no definite tenderness to palpation, pain over radial side of wrist on ROM, Becky negative Neurological Exam: Present: alert, oriented, normal mood/affect, no motor/ sensory deficits Skin Exam: Present: normal color, warm/dry ED Progress - Vital Signs Patient's Vital Signs:: I have reviewed the patient's vital signs. Vital Signs: Vital Signs 01/16/17 08:38 Temperature 36.6 C Pulse Rate 92 Respiratory 12 Rate Blood Pressure 146/93 O2 Sat by Pulse 99 Oximetry - X-Ray X-Ray #1 X-Ray: wrist - DJD, no fracture Interpretation: Reviewed by me - Progress/Reassessment Chief Complaint: Wrist Injury/Pain Progress Note-Subjective: 01/16/17 09:47 discussed result with patient, will try splint Departure Clinical Impression: Arthritis of wrist, left, degenerative Qualifiers: Osteoarthritis type: unspecified Qualified Code(s): M19.032 - Primary osteoarthritis, left wrist - Departure Disposition: Home self-care Condition: Good Instructions: Arthritis, [id number] Additional Instructions: take tylenol or ibuprofen as needed for pain wear the splint for comfort if you are not getting better over the next week or two call the orthopedic office for follow up Referrals: Maegan Rea FNP [Primary Care Provider] - Rufus Dick MD [Staff Physician] -
[2017-01-16 11:18] VITALS: BP 138/89
== END 2017-01-16 10:10 | disposition home or self-care (01) ==
LOC: ER 08:31
PROC: 2W3DX1Z Immobilization of Left Lower Arm using Splint (ICD-10-PCS; principal; 2017-01-16)
DX: M19.032 Primary osteoarthritis, left wrist (principal); I10 Essential (primary) hypertension